=== PATIENT | male | born 1960 | race Caucasian/White ===

== ENCOUNTER → 2017-01-02 | Outpatient (CLI) | payer OTHER ==
--- NOTE | 2017-01-02 18:54 | CONS ---
DATE OF CONSULTATION: 01/02/2017 CONSULTATION/NEW PATIENT EVALUATION 56-year-old gentleman who [facility] for obstructive sleep apnea-hypopnea syndrome. HISTORY OF PRESENT ILLNESS/SLEEP-WAKE EVALUATION: Patient had been diagnosed with obstructive sleep apnea in a different institution about 7 years ago. He was started on treatment with CPAP and tried to use for about 2 years, but had difficulties with the machine related to the pressure and mask and quit using equipment about 5 years ago. SLEEP SCHEDULE: At present his sleep schedule on working days from around 8:30 p.m. to 2:20 a.m. and on weekends from around 10:30 p.m. until 7:00 a.m. FALLING ASLEEP: Sometimes he has problem with falling asleep. No TV in bedroom. DURING SLEEP: He snores. Has witnessed episodes of stopped breathing during sleep, choking, nocturia, grinding teeth, gasping for air, restless legs, sweating. DURING THE DAY/WAKE STATE: He wakes up from sleep once with nocturia on treatment with tamsulosin. [place] Sleepiness Scale is significantly increased to 14. The patient referred sleepiness in different situations during the day including sleepiness while driving and he has concerns about that. PAST MEDICAL HISTORY: Positive for acid reflux, nocturia, possible benign prostatic hypertrophy. History of asthma in childhood. MEDICATIONS: Tamsulosin. PAST SURGICAL HISTORY: Right knee surgery, nasal surgery for nasal septum deviation. SOCIAL HISTORY: Positive for smoking in the past; quit 30 years ago. Alcohol consumption rarely. FAMILY HISTORY: Hypertension, hyperlipidemia, arthritis, asthma, sinus headaches, pneumonia, snoring, sleep apnea, acid reflux. REVIEW OF SYSTEMS: Snoring, sleepiness during the day. No fevers. No double vision. No recent chest pain. No shortness of breath. No abdominal pain. No bleeding episodes. No blood in urine. No seizure episodes. PHYSICAL EXAMINATION: GENERAL: A gentleman without distress. VITAL SIGNS: BP 126/79, HR 76, RR 16. Height 5 feet 8 inches. Weight 245, BMI 37.2. Neck 17 inches in circumference. Temperature 98.2. Oxygen saturation at room air 94%. HEENT: PERRLA, EOMI. Evaluation of oropharynx showed extremely low position of soft palate. NECK: Supple. No JVD. Thyroid is not palpable. LUNGS: Clear to percussion and to auscultation. Good air exchange. No wheezing or rhonchi. HEART: S1, S2 regular. No murmurs, gallops or rubs. ABDOMEN: Obese. Soft and nontender. Bowel sounds are present. No organomegaly appreciated. EXTREMITIES: No clubbing or cyanosis. 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 Cranial nerves 2 to 7 intact. There is no fasciculation or atrophy noted. No focal deficits observed. IMPRESSION: 1. Snoring, witnessed episodes of stopped breathing during sleep, extremely low position of soft palate, history of obstructive sleep apnea in the past, sleepiness, obstructive sleep apnea-hypopnea syndrome. 2. Obesity; body mass index 37.2. 3. History of acid reflux. 4. Status post surgical treatment for nasal septum deviation. 5. History of asthma in childhood. 6. Status post right knee surgery. 7. Nocturia, improved on tamsulosin. PLAN: 1. Polysomnography for evaluation of patient's breathing during sleep. 2. CPAP/BiPAP titration if sleep study confirms obstructive sleep apnea-hypopnea syndrome. 3. Preferable position during sleep on the side. 4. No driving if patient feels any sleepiness. Patient is aware of civil and criminal liability for unsafe driving. 5. I will see patient for follow-up visit to explain results of the testing and following plan. Thank you very much for referring this patient for consultation Sincerely, George Castellano MD, PhD, FAASM. Diplomat of [place] [employer], Sleep Medicine Board by [place] [employer] [place] [employer] Plant Maintenance Worker of [facility] [place]
== END | disposition home or self-care (01) ==
LOC: SLEEP 14:04
PROVIDERS: ATTEND Internal Medicine
DX: G47.33 Obstructive sleep apnea (adult) (pediatric) (principal); E66.9 Obesity, unspecified; K21.9 Gastro-esophageal reflux disease without esophagitis; R35.1 Nocturia; J45.909 Unspecified asthma, uncomplicated; Z68.37 Body mass index [BMI] 37.0-37.9, adult; Z87.891 Personal history of nicotine dependence; Z79.899 Other long term (current) drug therapy
CPT/HCPCS: 99211

== ENCOUNTER → 2020-09-29 | Outpatient (CLI) | payer SELFPAY | END | disposition home or self-care (01) | LOC: LABWHC1 14:21 | PROVIDERS: ATTEND Family Medicine | DX: Z20.828 Contact with and (suspected) exposure to other viral communicable diseases (principal) | CPT/HCPCS: U0003; C9803 ==

== ENCOUNTER 2020-10-05 08:57 | Day surgery (SDC) | payer OTHER ==
[2020-10-03 10:32] VITALS: BMI 35.2
--- NOTE | 2020-10-05 07:41 | P.GSHP ---
History of Present Illness H&P Date: 10/05/20 CHIEF COMPLAINT: Colon screen HISTORY OF PRESENT ILLNESS: The patient is a 60-year-old male who presents for colon screen. Lower endoscopy was offered for further evaluation and management. PAST MEDICAL HISTORY: Please see list. PAST SURGICAL HISTORY: Please see list. MEDICATIONS: Please see list. ALLERGIES: Please see list. SOCIAL HISTORY: No illicit drug use FAMILY HISTORY: No reports of Crohn disease or ulcerative colitis. REVIEW OF ORGAN SYSTEMS: CONSTITUTIONAL: No reports of fevers or chills. PHYSICAL EXAM: VITAL SIGNS: Stable GENERAL: Well-developed pleasant in no acute distress. HEENT: No scleral icterus. Extraocular movements grossly intact. Moist buccal mucosa. NECK: Supple without lymphadenopathy. CHEST: Unlabored respirations. Equal bilateral excursions. CARDIOVASCULAR: Regular rate and rhythm. Distal 2+ pulses. ABDOMEN: Soft, nontender, nondistended. MUSCULOSKELETAL: No clubbing, cyanosis, or edema. ASSESSMENT: 1. Colon screen. PLAN: 1. Recommend proceeding with a lower endoscopy Past Medical History Past Medical History: Asthma, Pneumonia, Sleep Apnea/CPAP/BIPAP Additional Past Medical History / Comment(s): no cpap used, hiatal hernia, anemia, History of Any Multi-Drug Resistant Organisms: None Reported Past Surgical History: Orthopedic Surgery Additional Past Surgical History / Comment(s): rt knee surgery, deviated septum, Past Anesthesia/Blood Transfusion Reactions: No Reported Reaction Smoking Status: Former smoker - Past Family History Mother Family Medical History: No Reported History Medications and Allergies Home Medications Medication Instructions Recorded Confirmed Type No Known Home Medications 10/03/20 10/03/20 History Allergies Allergy/AdvReac Type Severity Reaction Status Date / Time codeine Allergy Nausea Verified 10/03/20 10:24 iodine Allergy Rash/Hives Verified 10/03/20 10:24 mecuricome Allergy Rash/Hives Uncoded 10/03/20 10:24
[~2020-10-05 08:57] MED LIST: LACTATED RINGERS 1,000 ML IV SCH
[2020-10-05 09:39] VITALS: TEMP 98.2
[2020-10-05] MEDS ORDERED: PROPOFOL 10 MG/ML 20 ML VIAL IV ONE (10:28)
--- NOTE | 2020-10-05 11:00 | P.PCN ---
Date of Procedure: 10/05/20 Description of Procedure: PREOPERATIVE DIAGNOSIS: Colonoscopy screening. POSTOPERATIVE DIAGNOSIS: Colonoscopy screening. Diverticulosis, scattered. External/internal hemorrhoids OPERATION: Colonoscopy to the cecum, ileocecal valve and appendiceal orifice. SURGEON: Deloris Fountain MD. ANESTHESIA: MAC. INDICATIONS: The patient is a 60-year-old male who presents for colonoscopy screening. Last colonoscopy over 5 years ago. Benefits and risks were described and informed consent was obtained. DESCRIPTION OF PROCEDURE: The patient had undergone Suprep. He had been brought into the operating room and laid in the left lateral decubitus position. After adequate intravenous sedation, the rectum was examined with 2% lidocaine jelly. External hemorrhoids were encountered. The rectal tone was within normal limits. No lesions were palpated in the rectal vault. An Olympus colonoscope was advanced until the cecum, ileocecal valve and appendiceal orifice were clearly viewed. The prep was good. Scattered diverticulosis was encountered. No colonic polyps were found. No evidence of focal colitis was found. Retroflexion of the scope demonstrated grade 1 internal hemorrhoids without active bleeding or inflammation. The colon was desufflated. The patient had tolerated the procedure well. Withdrawal time was over 6 minutes. FINDINGS: Aronchick preparation quality scale 2 (1-5) Internal hemorrhoids, grade 2 External prolapsed hemorrhoids, grade 3 No arteriovenous malformations. No adenomatous polyps. No focal colitis. RECOMMENDATIONS: Lower endoscopy in 2029 Plan - Discharge Summary Discharge Rx Participant: No New Discharge Prescriptions: Continue No Known Home Medications Discharge Medication List No Known Home Medications 10/03/20 [History] Follow up Appointment(s)/Referral(s): Deloris Fountain MD [STAFF PHYSICIAN] - As Needed Patient Instructions/Handouts: *Surgery [facility] - (Anesthesia) Endoscopy Discharge Instructions, Diverticulosis Diet (GEN), Diverticulosis (DC) Activity/Diet/Wound Care/Special Instructions: Repeat colonoscopy years2029 Discharge Disposition: HOME SELF-CARE
[2020-10-05 11:25] VITALS: BP 155/89; PULSE 65; RESP 20
--- NOTE | 2020-10-09 15:32 | CDI ---
Date: 10.09.2020 CDS/Ammonium Sulfate Operator Name: Amberly Marvin Phone: If any questions, call [facility] at [phone] Patient Name: Gato Phelps Admit Date 10.05.20 Discharge Date: 10.05.20 ATTENTION: The [facility] Coding Staff appreciate your assistance in clarifying documentation. Please respond to the clarification below the line at the bottom and electronically sign. The [facility] Coding staff will review the response and follow-up if needed. Please note: Queries are made part of the Legal Health Record. If you have any questions, please contact the Hospice Educator. Dear Dr. Fountain In order to code to the greatest specificity and for the greatest reimbursement I need the following information: In your Colonoscopy documentation you have documented in the description there were grade 1 internal hemorrhoids, but in the findings you have documented grade 2 internal hemorrhoids. Please clarify what grade the internal hemorrhoids are. Thank you for your kind consideration. Grade 2 See amended report KM 10/10/20 @ 0457 MTDD
== END 2020-10-05 11:40 | disposition home or self-care (01) ==
LOC: ORWHC2ENDO 08:57
PROVIDERS: ATTEND Surgery Plastic and Reconstructive Surgery
DX: Z12.11 Encounter for screening for malignant neoplasm of colon (principal); K57.30 Diverticulosis of large intestine without perforation or abscess without bleeding; K64.1 Second degree hemorrhoids; K64.8 Other hemorrhoids; J45.909 Unspecified asthma, uncomplicated; K44.9 Diaphragmatic hernia without obstruction or gangrene; G47.33 Obstructive sleep apnea (adult) (pediatric); F17.200 Nicotine dependence, unspecified, uncomplicated; Z88.5 Allergy status to narcotic agent; Z91.048 Other nonmedicinal substance allergy status; Z87.01 Personal history of pneumonia (recurrent); Z86.2 Personal history of diseases of the blood and blood-forming organs and certain disorders involving the immune mechanism; Z98.890 Other specified postprocedural states; Z88.8 Allergy status to other drugs, medicaments and biological substances
CPT/HCPCS: J2704; G0121

== ENCOUNTER → 2020-10-07 | Outpatient (CLI) | payer OTHER ==
--- NOTE | 2020-10-07 18:00 | MR ---
EXAMINATION TYPE: MR thoracic spine wo con DATE OF EXAM: 10/07/2020 COMPARISON: None HISTORY: Mid-Back Pain Multiplanar multiecho imaging of the thoracic spine was performed without contrast. Thoracic vertebra have normal alignment. There is multilevel mild disc space narrowing and spurring o f the endplates. There is developmentally adequate spinal canal. I see no thoracic spinal stenosis. T horacic spinal cord has normal signal pattern. There is no evidence of a mass or edema. There is no s ign of thoracic paraspinal mass. There is no compression fracture. I see no bony destructive process. Cervical spinous intact. There are mild degenerative disc signal c hanges in the cervical spine. There is no sign of cervical spinal stenosis. There is posterior disc b ulging at C3-4 and C6-7 without significant impingement on the cervical spinal cord. IMPRESSION: Mild multilevel cervical and thoracic spondylotic changes. No fracture seen.
== END | disposition home or self-care (01) ==
LOC: RADMRIMAIN 13:41
PROVIDERS: ATTEND Family Medicine
DX: M47.814 Spondylosis without myelopathy or radiculopathy, thoracic region (principal)
CPT/HCPCS: 72146

== ENCOUNTER → 2020-11-28 | Outpatient (CLI) | payer OTHER | END | disposition home or self-care (01) | LOC: LABWHC1 11:40 | PROVIDERS: ATTEND Nurse Practitioner Family | DX: Z20.828 Contact with and (suspected) exposure to other viral communicable diseases (principal) | CPT/HCPCS: U0003; C9803 ==

== ENCOUNTER 2021-05-08 09:29 | Day surgery (SDC) | payer OTHER ==
[2021-05-03 15:33] VITALS: BMI 34.4
[~2021-05-08 09:29] MED LIST changes: +ACETAMINOPHEN TAB 500 MG TAB PO PRN; +DEXAMETHASONE SOD PHOSPHATE 4 MG/ML 1 ML VIAL IV ONE; +GABAPENTIN 300 MG CAP PO PRN; +LIDOCAINE 1% (10MG/ML) FOR IV START INTRADERMA PRN; +MELOXICAM 7.5 MG TAB PO PRN; +MIDAZOLAM 2 MG/2 ML VIAL IV PRN; +ONDANSETRON 4 MG/2 ML VIAL IVP ONE; +ROPIVACAINE/EPI/CLONIDINE/KET 50 ML SYRINGE MISCELLANE PRN; +TRANEXAMIC ACID 1,000 MG in SODIUM CHLORIDE 0.9% 100 ML IVPB PRN
[2021-05-08] MEDS ORDERED: MIDAZOLAM 2 MG/2 ML VIAL IVP ONE (10:40)
[2021-05-08] MEDS ORDERED: HYDROmorphone 0.5 MG/0.5 ML SYRINGE IVP PRN (11:06)
[2021-05-08] MEDS ORDERED: ONDANSETRON 4 MG/2 ML VIAL IVP PRN (11:06)
[2021-05-08] MEDS ORDERED: HYDROmorphone 1 MG/ML 1 ML SYRINGE IVP PRN (11:06)
[2021-05-08] MEDS ORDERED: NALOXONE 0.4 MG/ML 1 ML VIAL IV PRN (11:06)
[2021-05-08] MEDS ORDERED: HYDROmorphone 0.2 MG/1 ML SYRINGE IVP PRN (11:06)
[2021-05-08] MEDS ORDERED: HYDROcodone/APAP 7.5-325MG 1 EACH TAB PO PRN ×2 (11:07)
[2021-05-08] MEDS ORDERED: SODIUM CHLORIDE 0.9% 1,000 ML IV SCH (11:15)
[2021-05-08] MEDS ORDERED: TRANEXAMIC ACID 1,000 MG/10 ML VIAL ONE (11:33)
[2021-05-08] MEDS ORDERED: MIDAZOLAM 2 MG/2 ML VIAL ONE (11:33)
[2021-05-08] MEDS ORDERED: PROPOFOL 10 MG/ML 20 ML VIAL IV ONE (11:33)
[2021-05-08] MEDS ORDERED: fentaNYL (PF) 50 MCG/ML 2 ML AMP ONE (11:33)
[2021-05-08] MEDS ORDERED: SODIUM CHLORIDE 0.9% 100 ML BAG ONE (11:33)
[2021-05-08] MEDS ORDERED: SUCCINYLCHOLINE CHLORIDE 100 MG/5 ML SYR IV ONE (11:33)
[2021-05-08] MEDS ORDERED: LIDOCAINE 1% INJ 10MG/ML (20 ML MDV) ONE (11:33)
[2021-05-08] MEDS ORDERED: ROPIVACAINE 5 MG/ML 30 ML VIAL ONE (11:33)
[2021-05-08] MEDS ORDERED: ceFAZolin 3,000 MG in SODIUM CHLORIDE 0.9% IRRIGATIO 3,000 ML IRRIGATION ONE (11:38)
--- NOTE | 2021-05-08 12:47 | P.OP ---
Date of Procedure: 05/08/21 Preoperative Diagnosis: Severe osteoarthritis right knee Postoperative Diagnosis: Severe osteoarthritis right knee Procedure(s) Performed: Right Total knee arthroplasty Implants: Valadez [employer] Nephew Journey II CR Oxinium cruciate retaining femoral component size 6, right [employer] Journey nonporous tibial baseplate size 5, right [employer]ade[employer] Journey II, XLPE Deep Dished articular insert, size 9 mm, Size 5- 6, right [employer] Journey Nova II resurfacing patellar component, oval, 35 mm All components were cemented using Palacos R bone cement The articulation is Oxinium on polyethylene Anesthesia: RETA Surgeon: Dharmesh Jaime Political Reporter #1: Corrie Roa Estimated Blood Loss (ml): 50 Pathology: other (Bone and cartilage) Condition: stable Disposition: PACU Indications for Procedure: After failure of conservative treatment we discussed the surgical and nonsurgical treatment options at length. Patient wishes to proceed with a total knee arthroplasty. Complications specific to this procedure were discussed at length, including but not limited to infection, bleeding, stiffness, and nerve injury. Covid-19 was also discussed at length with the patient, and they are aware of the current policies and procedures. The patient was given the option of delaying surgery, but they elect to proceed knowing these risks. Patient is aware of all these complications and informed consent was obtained Operative Findings: The operative findings are consistent with severe osteoarthritis of the right knee Description of Procedure: Patient was seen in the preoperative area and the consent was reviewed and the operative site was marked with a skin marker. The patient verified the procedure and the operative site. An adductor canal pain catheter was placed by anesthesia in the preoperative area. The patient was then brought to the operating room and given preoperative antibiotics intravenously. A gram of transexamic acid was given intravenously. A general anesthetic was administered by the anesthesia department. A tourniquet was placed on the upper thigh and the lower extremity was prepped with chlorhexidine and draped in usual sterile fashion. A universal timeout was then performed which confirmed the patient's name, surgical site, ALLERGIES, and consent. The lower extremity was then exsanguinated and tourniquet was inflated to 250 mmHg. A standard anterior midline approach to the knee was performed. The skin and subcutaneous tissue were sharply dissected down to the patellar tendon. A medial parapatellar arthrotomy was then performed. The knee was then extended, the patellar was everted, and the knee was again flexed. The infra-patellar fat pad was removed in order to enhance exposure. The anterior horns of both menisci were excised, and a release was performed to the posterior medial aspect of the knee. On gross visual inspection, there was complete loss of articular cartilage in the medial and patellofemoral joint spaces. There was also significant cartilage damage in the lateral compartment. There were multiple periarticular osteophytes globally about the knee which were then removed with a Ronguer. The femoral canal was then opened with the 9.5 mm intramedullary drill. The 8 mm intramedullary sara was then inserted into the femoral canal with the distal femoral cutting guide set for 5 of valgus. The distal femoral cutting block was then pinned in place. The intramedullary sara was then removed, and the distal femur was then cut. The cutting block was then removed and the cut was checked for symmetry. The resected bone was then measured to confirm the appropriate distal femoral resection. Next, the sizing guide was then placed and set for 3 external rotation based off of the epicondylar axis and Whitesides line. Pins were then placed and the drill holes, and the femur was sized with the sizing stylus. The pins were then removed, and the sizing guide was then removed. The spikes of the femoral block was then placed into the predrilled holes, and malleted into place. Two 45 mm pins were then placed into the fixation holes on the cutting block. An ashvin wing was then used to ensure there would be no notching with the anterior cut. The anterior condyles were cut without notching. The anterior chord cut was then performed, followed by the posterior cut, posterior chamfer cut, and the anterior chamfer cut. The collateral ligaments were protected during the entire process. The cutting block was then removed. Any remaining bone and osteophytes were removed from the femur with a Rominger. The femoral canal was plugged with autologous bone. Attention was then directed to the tibia. The remaining ACL was removed with a Ronguer, and the tibia was then gently subluxed forward with a large bent knee retractor. Any remaining menisci were excised. The posterior lateral corner was cauterized in order to coagulate the lateral geniculate artery. The extra medullary tibial cutting guide was then placed, set for the appropriate rotation, slope, and depth of resection. The proximal tibia cutting guide was then pinned in place. Proximal tibia was then cut and sized. The femoral trial was placed. A narrow saw blade was then used to remove the anterior intracondylar femoral bone. The CR notch trial was then placed. The tibial trial was placed with the appropriate-sized insert. The knee was able to fully extend and flex to 130 and was stable throughout all range of motion. The knee was then extended and the patella was everted. Patella was then measured, and then using an osteotomy guide, the patella was cut at the appropriate level. The patella was then measured and drilled and the patella trial was then placed. The knee was then taken through range of motion with the patella trial and the patella tracked normally using the no thumbs technique.. The knee was then extended patella trial was then removed and the patella was everted. Knee was then flexed and lug holes were drilled through the femoral trial and the femoral trial was then removed. The tibial was then re-exposed, and the tibial broach guide was then pinned in place after it was set for the appropriate rotation to allow for the most coverage without overhang. The tibia was then reamed and broached. The cut surfaces of bone were then irrigated with pulsatile lavage. The posterior structures were injected with the ropivacaine solution. The knee was also irrigated with Irrisept solution. The components were then opened, the cement was mixed, and the components were then cemented in place. The cement was allowed to harden with the knee in full extension. While the cement was hardening, the remaining soft tissues were then injected with a ropivacaine solution, which consisted of 246.25 mg of ropivacaine, 0.5 mg of epinephrine, 30 mg of Toradol, 80 g of clonidine, and 48.45 mL of sterile water, for a total of 100 mL of fluid injected. After the cemented hardened. The tourniquet was released, and hemostasis was obtained. A second gram of transexamic acid was given intravenously. The knee was again irrigated. The knee was again taken through range of motion and found to be stable throughout all range of motion of 0-130, and the patella tracked normally. The fascia was then closed with 0 Vicryl followed by #2 strata fix suture. The subcutaneous tissue was closed with 3-0 Vicryl and 3-0 strata fix. Exofin glue was used for the skin and placed with the knee in flexion. After the glue had dried, and Optafoam silver impregnated dressing was applied. The patient was then transferred to recovery room in stable condition. The credit assistant EPI Lama was required due the complexity surgery and the need for a skilled certified surgical technician. She assisted in positioning, draping, retraction, and closure of the wound.
[2021-05-08] MEDS ORDERED: ROPIVACAINE 0.2%-NS ON-Q PUMP 1,090 MG, EMPTY PAIN BALL 1 EACH MISCELLANE PRN (12:56)
--- NOTE | 2021-05-08 13:00 | P.ANPRN ---
Procedure Note - Anesthesia - Nerve Block Performed Right Adductor Canal Time Out Performed: Yes (10:36) Date of Procedure: 05/08/21 Procedure Start Time: :36 Procedure Stop Time: :51 Location of Patient: PreOp Indication: Acute Post-Operative Pain, Requested by Surgeon (Dr Dharmesh marcum) Sedation Type: Sedate with meaningful contact maintained Preparation: Sterile Prep, Sterile Dressing Position: Supine Catheter: Indwelling Needle Types: Pajunk Needle Gauge: 21 Ultrasound used to visualize needle placement: Yes Ultrasound used to observe medication spread: Yes Injectate: 0.5% Ropivacaine (see comment for volume) (15cc) Blood Aspirated: No Pain Paresthesia on Injection Noted: No Resistance on Injection: Normal Image Stored and Saved: Yes Events: Uneventful and Well Tolerated
--- NOTE | 2021-05-08 13:02 | P.ANPRN ---
Procedure Note - Anesthesia - Nerve Block Performed Right iPack Time Out Performed: Yes Date of Procedure: 05/08/21 Procedure Start Time: 10:51 Procedure Stop Time: 11:04 Location of Patient: PreOp Indication: Acute Post-Operative Pain, Requested by Surgeon (Dr Dharmesh Jaime) Sedation Type: Sedate with meaningful contact maintained Preparation: Sterile Prep Position: Supine Catheter: None Needle Types: Pajunk Needle Gauge: 21 Ultrasound used to visualize needle placement: Yes Ultrasound used to observe medication spread: Yes Injectate: 0.5% Ropivacaine (see comment for volume) (15cc) Blood Aspirated: No Pain Paresthesia on Injection Noted: No Resistance on Injection: Normal Image Stored and Saved: Yes Events: Uneventful and Well Tolerated
[2021-05-08] MEDS: HYDROmorphone 0.5 MG/0.5 ML SYRINGE IVP PRN ×4 (13:21→14:17)
[2021-05-08 13:28] VITALS: TEMP 97.3
[2021-05-08] MEDS ORDERED: SODIUM CHLORIDE 0.9% 1,000 ML IV ONE ×2 (14:03)
--- NOTE | 2021-05-08 14:10 | XR ---
EXAMINATION TYPE: XR knee limited RT DATE OF EXAM: 05/08/2021 COMPARISON: NONE TECHNIQUE: Two views submitted HISTORY: Post op FINDINGS: There is a prosthetic knee in near anatomic alignment. There is soft tissue edema and emphysema. IMPRESSION: 1. Postoperative change. Appears in near-anatomic alignment
[2021-05-08 14:18] VITALS: RESP 16
[2021-05-08 15:31] VITALS: PULSE 64
[2021-05-08 15:50] VITALS: BP 142/80
== END 2021-05-08 17:04 | disposition home health service (06) ==
LOC: OR 09:29
PROVIDERS: ATTEND Orthopaedic Surgery
DX: M17.11 Unilateral primary osteoarthritis, right knee (principal); E78.5 Hyperlipidemia, unspecified; G47.33 Obstructive sleep apnea (adult) (pediatric); K44.9 Diaphragmatic hernia without obstruction or gangrene; Z91.048 Other nonmedicinal substance allergy status; Z87.891 Personal history of nicotine dependence; Z98.890 Other specified postprocedural states; Z79.1 Long term (current) use of non-steroidal anti-inflammatories (NSAID); Z79.899 Other long term (current) drug therapy; Z88.5 Allergy status to narcotic agent
CPT/HCPCS: 27447; 97162; 64999; 64448; 76942; 88300; 73560; C1713; C1776; J2250; J1100; J0690 ×2; J2405; J2001; J3010; J2795 ×2; J0330; J2704; J1170

== ENCOUNTER → 2022-07-12 | Outpatient (CLI) | payer OTHER ==
--- NOTE | 2022-07-13 02:57 | MR ---
EXAMINATION TYPE: MR brain wo/w con DATE OF EXAM: 07/12/2022 COMPARISON: None HISTORY: TEST FOR ALZHEIMER'S DISEASE CONTRAST: Standard multiplanar, multisequence MRI departmental protocol images were obtained without contrast a nd with 10ML mL intravenous Gadavist gadolinium contrast. There is some cerebral cortical atrophy. There is no mass effect or midline shift. No sign of intracr anial hemorrhage. Diffusion images showed no evidence of an acute infarct. Corpus callosum is intact. Sella turcica appears normal. There is mucosal thickening and mucous retention cysts in the maxillar y sinuses. The brainstem is intact. No evidence of any significant white matter disease. The contrast images show no pathologic enhancement. There is normal enhancement of the venous sinuses . IMPRESSION: There is mild cerebral atrophy appropriate for age. Otherwise negative exam.
== END | disposition home or self-care (01) ==
LOC: RADMRIMAIN 13:18
PROVIDERS: ATTEND Family Medicine
DX: F68.8 Other specified disorders of adult personality and behavior (principal)
CPT/HCPCS: 70553; A9585

== ENCOUNTER 2025-03-23 12:58 | Emergency (ER) | payer MEDICARE, OTHER ==
[2025-03-23 13:22] VITALS: RESP 20
[2025-03-23] MEDS: ACETAMINOPHEN TAB 500 MG TAB PO STA (14:34)
[2025-03-23] MEDS: LIDOCAINE 1% INJ 10MG/ML (20 ML MDV) SQ ONE (14:35)
--- NOTE | 2025-03-23 15:03 | XR ---
EXAMINATION TYPE: XR hand complete LT DATE OF EXAM: 03/23/2025 2:56 PM COMPARISON: None. CLINICAL INDICATION: Male, 64 years old with history of laceration, pain TECHNIQUE: 3 view(s) obtained. FINDINGS: No acute fracture or dislocation evident. Joint spaces are preserved. No radiopaque foreign bodies ev ident. Patient's laceration is not well visualized. Soft tissues appear normal. Follow up exams can be performed as clinically indicated. IMPRESSION: 1. No acute osseous abnormality left hand [facility], Workstation: [facility], 03/23/2025 3:01 PM
--- NOTE | 2025-03-23 15:17 | ED ---
General Adult HPI - General Chief complaint: Wound/Laceration Stated complaint: L hand laceration Time Seen by Provider: 03/23/25 14:00 Source: patient Mode of arrival: ambulatory Limitations: no limitations - History of Present Illness Initial comments: 64-year-old male presents emergency department with laceration to the left index finger. States that he was using a screwdriver chipping away at something when it accidentally struck him in the left index finger. Patient did sustain a laceration. He is up-to-date on his tetanus. Admits only to minimal pain. No restricted range of motion. No active bleeding. Patient does not take blood thinners. Denies any other injuries. No other alleviating, precipitating or modifying factors - Related Data Home Medications Medication Instructions Recorded Confirmed Acetaminophen Tab [Tylenol Tab] 500 mg PO DAILY PRN 05/03/21 05/08/21 Previous Rx's Medication Instructions Recorded Aspirin 325 mg PO BID #60 tab 05/08/21 Celecoxib [CeleBREX] 200 mg PO DAILY 5 Days #5 capsule 05/08/21 HYDROcodone/APAP 7.5-325MG [Tyler 1 - 2 tab PO Q6H PRN #32 tab 05/08/21 7.5-325] Ondansetron Odt [Zofran Odt] 1 tab PO Q8HR PRN #10 tab 05/08/21 Sennosides [Senokot] 2 tab PO DAILY PRN #60 tablet 05/08/21 Allergies Allergy/AdvReac Type Severity Reaction Status Date / Time codeine Allergy Nausea Verified 03/23/25 13:23 iodine Allergy Rash/Hives Verified 03/23/25 13:23 mecuricome Allergy Rash/Hives Uncoded 03/23/25 13:23 Review of Systems ROS Statement: Those systems with pertinent positive or pertinent negative responses have been documented in the HPI. ROS Other: All systems not noted in ROS Statement are negative. Past Medical History Past Medical History: Sleep Apnea/CPAP/BIPAP Additional Past Medical History / Comment(s): has cpap History of Any Multi-Drug Resistant Organisms: None Reported Past Surgical History: Orthopedic Surgery Additional Past Surgical History / Comment(s): deviated septum repair. rt knee surgery. colonoscopy Past Anesthesia/Blood Transfusion Reactions: No Reported Reaction Past Psychological History: No Psychological Hx Reported Smoking Status: Former smoker Past Alcohol Use History: Occasional Past Drug Use History: Marijuana - Past Family History Mother Family Medical History: No Reported History General Exam Limitations: no limitations General appearance: alert, in no apparent distress Head exam: Present: atraumatic, normocephalic, normal inspection Extremities exam: Present: normal inspection, full ROM, normal capillary refill. Absent: tenderness, pedal edema, joint swelling, calf tenderness Neurological exam: Present: alert, oriented X3, CN II-XII intact Psychiatric exam: Present: normal affect, normal mood Skin exam: Present: other (Laceration to the left index finger on the lateral aspect. Measures 3 cm in length. No injury to the underlying tendon. No active bleeding. No gross deformity of the bone. Cap refill less than 3 seconds. Compartments are soft) Course Vital Signs 03/23/25 03/23/25 13:21 16:00 Temperature 97.9 F 98.0 F Pulse Rate 62 68 Respiratory 20 20 Rate Blood Pressure 177/84 146/80 O2 Sat by Pulse 99 98 Oximetry Procedures - Laceration Laceration #1 Consent Obtained: verbal consent Indication: laceration Site: hand Size (cm): 3 Description: linear Depth: simple, single layer Anesthetic Used: lidocaine 1% Anesthesia Technique: nerve block Amount (mls): 8 Pre-repair: wound explored, irrigated extensively, deep structures intact Type of Sutures: nylon Size of Sutures: 5-0 Number of Sutures: 5 Technique: simple, interrupted Patient Tolerated Procedure: well, no complications Medical Decision Making - Medical Decision Making Was pt. sent in by a medical professional or institution ([facility], CALL CENTER MANAGER, urgent care, hospital, or custodial...) When possible be specific @ -No Did you speak to anyone other than the patient for history (EMS, parent, family, police, friend...)? What history was obtained from this source @ -No Did you review nursing and triage notes (agree or disagree)? Why? @ -I reviewed and agree with nursing and triage notes Were old charts reviewed (outside hosp., previous admission, EMS record, old EKG, old radiological studies, urgent care reports/EKG's, custodial records)? Report findings @ -No old charts were reviewed Differential Diagnosis (chest pain, altered mental status, abdominal pain women, abdominal pain men, vaginal bleeding, weakness, fever, dyspnea, syncope, headache, dizziness, GI bleed, back pain, seizure, CVA, palpatations, mental health, musculoskeletal)? @Differential Musculoskeletal Muscular strain, contusion, ligament sprain, fracture, arthritis, septic arthritis, bursitis, cellulitis, muscle spasm, nerve compression, DVT, arterial occlusion, herpes zoster, electrolyte abnormality, tumor.... This is not meant to be in all inclusive list EKG interpreted by me (3pts min.). @ -Not done X-rays interpreted by me (1pt min.). @ -No bony injuries CT interpreted by me (1pt min.). @ -None done U/S interpreted by me (1pt. min.). @ -None done What testing was considered but not performed or refused? (CT, X-rays, U/S, labs)? Why? @ -None What meds were considered but not given or refused? Why? @ -None Did you discuss the management of the patient with other professionals (professionals i.e. , PA, CALL CENTER MANAGER, lab, RT, psych nurse, manager social responsibility, pricing manager, teacher, child support case officer, case checker)? Give summary @ -No Was smoking cessation discussed for >3mins.? @ -No Was critical care preformed (if so, how long)? @ -No Were there social determinants of health that impacted care today? How? (Homelessness, low income, unemployed, alcoholism, drug addiction, transportation, low edu. Level, literacy, decrease access to med. care, skilled nursing, rehab)? @ -No Was there de-escalation of care discussed even if they declined (Discuss DNR or withdrawal of care, Hospice)? DNR status @ -No What co-morbidities impacted this encounter? (DM, HTN, Smoking, COPD, CAD, Cancer, CVA, ARF, Chemo, Hep., AIDS, mental health diagnosis, sleep apnea, morbid obesity)? @ -None Was patient admitted / discharged? Hospital course, mention meds given and route, prescriptions, significant lab abnormalities, going to OR and other pertinent info. @ -Upon arrival patient seen and evaluated in bed 30. Thorough history and physical exam was performed. Patient's hand is soaked in Betadine solution. X- ray is performed which demonstrates no bony injury. Patient's finger was sutured. He is instructed to take Motrin Tylenol for any for pain control. Follow-up in 7 to 10 days to have his sutures removed and return to the emergency department for any new or worsening symptoms. Patient agreeable to plan was discharged in stable condition Undiagnosed new problem with uncertain prognosis? @ -No Drug Therapy requiring intensive monitoring for toxicity (Heparin, Nitro, Insulin, Cardizem)? @ -No Were any procedures done? @ -Laceration closure Diagnosis/symptom? @ -Acute laceration left index finger Acute, or Chronic, or Acute on Chronic? @ -Acute Uncomplicated (without systemic symptoms) or Complicated (systemic symptoms)? @ -Uncomplicated Side effects of treatment? @ -No Exacerbation, Progression, or Severe Exacerbation? @ -No Poses a threat to life or bodily function? How? (Chest pain, [place], [place], pneumonia, PE, COPD, DKA, ARF, appy, cholecystitis, CVA, Diverticulitis, Homicidal, Suicidal, threat to staff... and all critical care pts) @ -No Disposition Clinical Impression: Laceration, Finger laceration Disposition: HOME SELF-CARE Condition: Stable Instructions (If sedation given, give patient instructions): Laceration (ED) Additional Instructions: Your stitches must be removed in 7-10 days. Follow-up with your primary care or return to the emergency department to have them removed. Rest, ice and elevate the extremity. Return for any new or worsening symptoms Is patient prescribed a controlled substance at d/c from ED?: No Referrals: Alex Aguilar DO [Primary Care Provider] - 1-2 days Jona Singletary MD [STAFF PHYSICIAN] - 1-2 days Time of Disposition: 15:17
[2025-03-23 16:01] VITALS: BP 146/80; PULSE 68; TEMP 98
== END 2025-03-23 16:17 | disposition home or self-care (01) ==
LOC: EC 12:58
DX: S61.211A Laceration without foreign body of left index finger without damage to nail, initial encounter (principal); Z87.891 Personal history of nicotine dependence; Z88.8 Allergy status to other drugs, medicaments and biological substances; Z91.041 Radiographic dye allergy status; Z88.5 Allergy status to narcotic agent; W22.8XXA Striking against or struck by other objects, initial encounter
CPT/HCPCS: 73130; 99283; 12002; J2003